=== PATIENT | male | born 1990 | race Hispanic/Latino ===

== ENCOUNTER → 2020-12-16 12:03 | Outpatient (CLI) | payer OTHER, SELFPAY ==
[2020-12-16 12:49] LABS: Hemoglobin A1C% w Est Avg Glu 5.2 % (4.0-6.0)
[2020-12-16 13:11] LABS: BUN Creatinine Ratio 18.2 (6-22); Blood Urea Nitrogen 14 mg/dL (9-20); Calcium 9.6 mg/dL (8.4-10.2); Carbon Dioxide 25 mmol/L (22-32); Chloride 106 mmol/L (98-107); Cholesterol 176 mg/dL (140-199); Estimated Glomerular Filt Rate > 60.0 mL/min (>60); Glucose 102 mg/dL (70-100); HDL Cholesterol 44 mg/dL (40-60); HEMOLYSIS < 15 (0-50); LDL Cholesterol Calculated 112 mg/dL (<100); Potassium 3.8 mmol/L (3.4-5.1); Sodium 140 mmol/L (137-145); Triglycerides 101 mg/dL (35-150)
== END ==
PROVIDERS: PCP Family Medicine; Referring Provider Family Medicine; Visit Provider Family Medicine
DX: Z83.3 Family history of diabetes mellitus (principal); Z68.33 Body mass index [BMI] 33.0-33.9, adult
CPT/HCPCS: 36415; 80048; 80061; 83036

== ENCOUNTER 2021-05-15 10:04 | Emergency (ER) | payer OTHER, SELFPAY ==
[2021-05-15 10:27] VITALS: BP 129/96; PULSE 116; RESP 20; TEMP 36.1; O2SAT 96; BMI 31.0
--- NOTE | 2021-05-15 10:29 | DI.RAD.S_ITS ---
PROCEDURE: XR CHEST 2V INDICATIONS: COVID+ / chest pain TECHNIQUE: 2 views of the chest were acquired. COMPARISON: None. FINDINGS: Surgical changes and devices: None. Lungs and pleura: Lungs are clear. No pleural effusions or pneumothorax. Mediastinum: Mediastinal contours are normal. Heart size is normal. Bones and chest wall: No suspicious bony abnormalities. Soft tissues appear unremarkable. IMPRESSION: No whitney infiltrates are seen. If there is clinical concern for a developing pulmonary process, a short-term followup chest series (with PA and lateral views, performed in deep inspiration) is suggested for further evaluation. Dictated by: Osvaldo Carvajal M.D. on 05/15/2021 at 9:50 Approved by: Osvaldo Carvajal M.D. on 05/15/2021 at 9:50
[2021-05-15 10:40] VITALS: BP 106/70
--- NOTE | 2021-05-15 10:56 | ED.GENADULT ---
HPI - General Adult General Chief complaint: Upper Respiratory Symptoms Stated complaint: Covid 8 days, pain in chest 1 day Time Seen by Provider: 05/15/21 10:31 Source: patient Mode of arrival: Ambulatory History of Present Illness HPI narrative: Patient is a 30-year-old male. On vaccinated against COVID. Started having symptoms approximately 1 week ago. Is here for evaluation of coughing and fullness in his chest and chest discomfort. Has been going on for the past week. Has been tolerating his fevers well with Tylenol. No diarrhea. also had symptoms but she improved after 1-2 days. Related Data Home Medications Medication Instructions Recorded Confirmed multivitamin 1 tab PO DAILY 12/16/20 12/16/20 Allergies Allergy/AdvReac Type Severity Reaction Status Date / Time No Known Drug Allergies Allergy Unverified 12/16/20 11:27 Review of Systems Constitutional Constitutional: Reports fatigue and Reports fever(s) Cardiovascular Cardiovascular: Reports as per HPI and Reports system reviewed and no additional complaints, except as documented Respiratory Respiratory: Reports as per HPI and Reports system reviewed and no additional complaints, except as documented Gastrointestinal Gastrointestinal: Reports system reviewed and no additional complaints, except as documented Musculoskeletal Musculoskeletal: Reports system reviewed and no additional complaints, except as documented Endocrine Endocrine: Reports fatigue Hematologic/Lymphatic On Anticoagulants: No Patient History Medical History Allergies (~2018) BMI 33.0-33.9,adult Chicken pox (~1995) Chronic right-sided low back pain without sciatica (~2019) Family history of diabetes mellitus type II Family History (Updated 02/04/21 @ 20:33 by Sinita Liao) Father Diabetes mellitus Hypertension Stroke Grandfather Cancer Diabetes mellitus Grandmother Diabetes mellitus Stroke Social History Smoking Status: Former smoker alcohol intake: current substance use type: marijuana Smoking Status: Former smoker Exam Initial Vital Signs Initial Vital Signs: Vital Signs Temperature 97.0 F L 05/15/21 10:27 Pulse Rate 116 H 05/15/21 10:27 Respiratory Rate 20 05/15/21 10:27 Blood Pressure 129/96 H 05/15/21 10:27 Pulse Oximetry 96 05/15/21 10:27 HENMT Head: normal to inspection and normocephalic Resp Effort & Inspection: normal respiratory effort Auscultation: clear to auscultation bilaterally Cardio Rate: tachycardic Rhythm: regular rhythm Skin General: no rashes or lesions noted Neuro General: patient alert, patient awake and moves all extremities Extrem General: normal to inspection and capillary refill normal Psych Appearance: grossly normal and well kempt Course Orders Ordered: ED Orders 05/15/21 10:29 XR chest 2V Stat Vital Signs Vital signs: Vital Signs - 8 hr 05/15/21 10:27 Temperature 97.0 F L Pulse Rate 116 H Respiratory Rate 20 Blood Pressure 129/96 H Pulse Oximetry 96 Medical Decision Making Imaging Data Chest x-ray: Radiologist's Impression: [address] [id number] XRay Report Signed Patient: Jens Segundo MR#: [id number] : 1990 Acct:[id number] Age/Sex: 30 / M Date of Service: 05/15/21 Loc: ED Accession Number: [id number] ?? Procedure: XR chest 2V Ordering Provider: Catrachito Engle D.O. PROCEDURE:? XR CHEST 2V ? INDICATIONS:? COVID+ / chest pain ? TECHNIQUE:? 2 views of the chest were acquired.? ? COMPARISON:? None. ? FINDINGS:? ? Surgical changes and devices:? None.? ? Lungs and pleura:? Lungs are clear.? No pleural effusions or pneumothorax.? ? Mediastinum:? Mediastinal contours are normal.? Heart size is normal.? ? Bones and chest wall:? No suspicious bony abnormalities.? Soft tissues appear unremarkable.? IMPRESSION:? ? No whitney infiltrates are seen. ? If there is clinical concern for a developing pulmonary process, a short-term followup chest series (with PA and lateral views, performed in deep inspiration) is suggested for further evaluation. ? ? ? Dictated by: Osvaldo Carvajal M.D. on 05/15/2021 at 9:50 ? ? Approved by: Osvaldo Carvajal M.D. on 05/15/2021 at 9:50?? MDM Narrative Medical decision making narrative: Not hypoxic, no respiratory distress, lungs are clear, low suspicion for ACS. I do suspect that his symptoms are COVID related. Will continue to have him treat his symptoms at home with Tylenol. He was given strict return precautions. He expressed understanding and agreement. Discharge Plan Departure Patient Disposition: Home Clinical Impression: COVID-19 Instructions: DI for COVID-19 (Suspected or Confirmed ) Activity Restrictions/Additional Instructions: Your chest x-ray does not show any signs of pneumonia. I suspect that your symptoms today are the result of COVID. I do recommend that you obtain a pulse oximeter at home to check your blood oxygen levels. They are consistently below 90 you do need to return to the emergency department for further evaluation. Prescriptions: No Action multivitamin Tablet 1 tab PO DAILY 0RF Referrals: Mikael Quiles DO [Primary Care Provider] -
[2021-05-15 11:00] VITALS: BP 132/86; PULSE 103; RESP 18; O2SAT 97
== END 2021-05-15 11:20 | disposition home or self-care (01) ==
PROVIDERS: Emergency Provider Emergency Medicine; PCP Family Medicine
DX: U07.1 COVID-19 (principal)
CPT/HCPCS: 71046; 99283

== ENCOUNTER → 2021-10-22 14:37 | Outpatient (CLI) | payer OTHER, SELFPAY ==
--- NOTE | 2021-10-22 14:39 | DI.US.S_ITS ---
PROCEDURE: US SCROTUM INDICATIONS: TESTICULAR PAIN TECHNIQUE: Real-time scanning was performed of the scrotum and testicles, with image documentation. Color and pulse Doppler interrogation was performed of both testicles. COMPARISON: None. FINDINGS: Right: Testicle is normal in size at 3.6 x 2.9 x 3.4 cm, and homogenous in echotexture. Epididymis is normal in overall size and morphology. Small hydrocele. No varicoceles. Overlying scrotal skin is normal in thickness. Left: Testicle is normal in size at 3.9 x 4.0 x 2.7 cm, and homogeneous in echotexture. Epididymis is normal in overall size and morphology. There is a 1.4 x 1.3 x 10.8 centimeter simple cyst in the left epididymal head. Small hydrocele. No varicoceles. Overlying scrotal skin is normal in thickness. Doppler: Color and pulse Doppler demonstrate normal and symmetric arterial flow in both testicles. IMPRESSION: 1. No evidence of testicular torsion. Please note ultrasound cannot exclude intermittent testicular torsion. 2. 1.4 x 1.3 x 1.8 centimeter left epididymal head cyst. 3. Small bilateral hydroceles. Dictated by: Lynne Duron MD, PhD on 10/22/2021 at 16:35 Approved by: Lynne Duron MD, PhD on 10/22/2021 at 16:37
== END ==
PROVIDERS: PCP Family Medicine; Referring Provider Family Medicine; Visit Provider Family Medicine
DX: N50.819 Testicular pain, unspecified (principal); N50.3 Cyst of epididymis; N43.3 Hydrocele, unspecified
CPT/HCPCS: 76870

== ENCOUNTER → 2022-09-16 10:38 | Outpatient (CLI) | payer OTHER, SELFPAY ==
[2022-09-16 11:19] LABS: Add Manual Diff / Slide Review NO; Basophils Absolute Auto 0 /uL (0-100); Basophils Percent Auto 0.7 % (0-2); Eosinophils Absolute Auto 200 /uL (0-450); Eosinophils Percent Auto 2.4 % (2-4); Hematocrit 46.6 % (41-53); Hemoglobin 16.1 g/dL (13.5-17.5); Lymphocytes Absolute Auto 2600 /uL (1100-4500); Lymphocytes Percent Auto 35.3 % (25-40); Mean Corpuscular HGB Conc 34.6 % (30-36); Mean Corpuscular Hemoglobin 30.7 PG (26-34); Mean Corpuscular Volume 88.7 fL (80-100); Monocytes Absolute Auto 400 /uL (0-900); Monocytes Percent Auto 6.1 % (3-14); Neutrophils Absolute Auto 4100 /uL (1500-7000); Neutrophils Percent Auto 55.5 % (50-75); Platelet Count 291 X10^3/uL (150-400); Red Blood Cell Count 5.25 X10^6/uL (4.5-5.9); Red Cell Distribution Width 13.1 % (11.6-14.8); White Blood Cell Count 7.4 X10^3/uL (4.5-11.0)
[2022-09-16 11:35] LABS: Alanine Aminotransferase 57 IU/L (<50); Albumin 4.4 g/dL (3.5-5.0); Albumin Globulin Ratio 1.4 (1.0-2.8); Alkaline Phosphatase 57 U/L (38-126); Aspartate Aminotransferase 31 IU/L (17-59); BUN Creatinine Ratio 17.3 (6-22); Bilirubin Total 0.7 mg/dL (0.2-1.3); Blood Urea Nitrogen 13 mg/dL (9-20); Calcium 9.3 mg/dL (8.4-10.2); Carbon Dioxide 27 mmol/L (22-32); Chloride 103 mmol/L (98-107); Cholesterol 181 mg/dL (140-199); Estimated Glomerular Filt Rate > 60 mL/min (>60); Globulin 3.2 g/dL (1.7-4.1); Glucose 99 mg/dL (70-100); HDL Cholesterol 42 mg/dL (40-60); HEMOLYSIS < 15 (0-50); LDL Cholesterol Calculated 117 mg/dL (<100); Potassium 3.9 mmol/L (3.4-5.1); Sodium 139 mmol/L (137-145); Total Protein 7.6 g/dL (6.3-8.2); Triglycerides 109 mg/dL (35-150)
[2022-09-16 11:51] LABS: Vitamin D 25 Hydroxy (D3) 30.1 ng/mL (30.0-100.0)
[2022-09-16 12:05] LABS: Prostate Specific Antigen Scrn 0.949 ng/mL (0.1-4.0)
[2022-09-17 09:38] LABS: Labcorp Hemoglobin (Hb) A1c 5.5 % (4.8-5.6)
== END ==
PROVIDERS: PCP Family Medicine; Referring Provider Family Medicine; Visit Provider Family Medicine
DX: R35.0 Frequency of micturition (principal); R53.83 Other fatigue; Z13.220 Encounter for screening for lipoid disorders; Z83.3 Family history of diabetes mellitus; Z12.5 Encounter for screening for malignant neoplasm of prostate
CPT/HCPCS: 36415; 80053; 80061; 82306; 83036; 84443; 85025; G0103

== ENCOUNTER → 2023-02-17 15:05 | Outpatient (CLI) | payer OTHER, SELFPAY ==
[2023-02-17 17:24] LABS: Alanine Aminotransferase 36 IU/L (<50); Albumin 4.7 g/dL (3.5-5.0); Albumin Globulin Ratio 1.5 (1.0-2.8); Alkaline Phosphatase 55 U/L (38-126); Aspartate Aminotransferase 28 IU/L (17-59); BUN Creatinine Ratio 18.3 (6-22); Bilirubin Total 0.9 mg/dL (0.2-1.3); Blood Urea Nitrogen 15 mg/dL (9-20); Calcium 9.5 mg/dL (8.4-10.2); Carbon Dioxide 24 mmol/L (22-32); Chloride 102 mmol/L (98-107); Estimated Glomerular Filt Rate > 60 mL/min (>60); Globulin 3.2 g/dL (1.7-4.1); Glucose 94 mg/dL (70-100); HEMOLYSIS < 15 (0-50); Lipase 59 U/L (23-300); Potassium 4.1 mmol/L (3.4-5.1); Sodium 140 mmol/L (137-145); Total Protein 7.9 g/dL (6.3-8.2)
== END ==
PROVIDERS: PCP Family Medicine; Referring Provider Pediatrics; Visit Provider Pediatrics
DX: R10.9 Unspecified abdominal pain (principal); R79.89 Other specified abnormal findings of blood chemistry
CPT/HCPCS: 36415; 80053; 83690

== ENCOUNTER → 2024-09-27 12:18 | Outpatient (CLI) | payer OTHER, SELFPAY ==
[2024-09-27 13:11] LABS: Add Manual Diff / Slide Review NO; Basophils Absolute Auto 100 /uL (0-100); Eosinophils Absolute Auto 200 /uL (0-450); Eosinophils Percent Auto 2.2 % (2-4); Hematocrit 48.1 % (41-53); Hemoglobin 16.8 g/dL (13.5-17.5); Lymphocytes Absolute Auto 2700 /uL (1100-4500); Lymphocytes Percent Auto 34.3 % (25-40); Mean Corpuscular HGB Conc 34.9 % (30-36); Mean Corpuscular Hemoglobin 31.1 PG (26-34); Monocytes Absolute Auto 600 /uL (0-900); Monocytes Percent Auto 7.6 % (3-14); Neutrophils Absolute Auto 4300 /uL (1500-7000); Neutrophils Percent Auto 54.9 % (50-75); Platelet Count 310 X10^3/uL (150-400); White Blood Cell Count 7.8 X10^3/uL (4.5-11.0)
[2024-09-27 13:32] LABS: BUN Creatinine Ratio 17.4 (6-22); Blood Urea Nitrogen 16 mg/dL (9-20); Carbon Dioxide 26 mmol/L (22-32); Chloride 102 mmol/L (98-107); Cholesterol 169 mg/dL (140-199); Estimated Glomerular Filt Rate > 60 mL/min (>60); Glucose 101 mg/dL (70-100); HDL Cholesterol 44 mg/dL (40-60); HEMOLYSIS < 15 (0-50); LDL Cholesterol Calculated 109 mg/dL (<100); Potassium 4.7 mmol/L (3.4-5.1); Sodium 138 mmol/L (137-145); Triglycerides 82 mg/dL (35-150)
== END ==
PROVIDERS: PCP Family Medicine; Referring Provider Family Medicine; Visit Provider Family Medicine
DX: E78.00 Pure hypercholesterolemia, unspecified (principal); Z68.33 Body mass index [BMI] 33.0-33.9, adult; Z83.3 Family history of diabetes mellitus
CPT/HCPCS: 36415; 80048; 80061; 85025